=== PATIENT | female | born 1935 | race Caucasian/White ===

== ENCOUNTER 2017-05-09 08:34 | Day surgery (SDC) | payer OTHER ==
[2017-05-08 12:05] VITALS: BMI 33.0
[2017-05-09] MEDS ORDERED: ASPIRIN 81 MG CHEWABLE TABLETS PO ONE (10:45)
[2017-05-09] MEDS ORDERED: ETOMIDATE 20 MG/10 ML AMPUL IVPUSH ONE (11:05)
[2017-05-09] MEDS ORDERED: PROPOFOL 20 ML ONE (11:05)
[2017-05-09 11:51] VITALS: TEMP 98.7
[2017-05-09 12:42] VITALS: BP 145/77; PULSE 60
== END 2017-05-09 12:42 | disposition home or self-care (01) ==
LOC: JASU-ENDO 08:34
PROVIDERS: ATTEND Internal Medicine Gastroenterology
PROC: 0DJD8ZZ Inspection of Lower Intestinal Tract, Via Natural or Artificial Opening Endoscopic (ICD-10-PCS; principal; 2017-05-09 09:00)
DX: Z51.11 Encounter for antineoplastic chemotherapy (principal); Z86.010 Personal history of colon polyps; Z80.0 Family history of malignant neoplasm of digestive organs; K57.30 Diverticulosis of large intestine without perforation or abscess without bleeding; K64.8 Other hemorrhoids